=== PATIENT | female | born 1970 | race Caucasian/White ===

== ENCOUNTER 2017-07-29 18:03 | Emergency (ER) | payer BC ==
[~2017-07-29] VITALS: Ht 177.8 cm; Wt 86.3 kg
[~2017-07-29 18:03] MED LIST: APIX5TAB3 PO; ASPI-611 PO; LORA1TAB PO; MINE133E25 RC; SOTA80TA69 PO
[2017-07-29 18:18] VITALS: BP 98/70
== END 2017-07-29 20:04 | disposition left against medical advice (07) ==
LOC: ER 18:03
DX: R07.89 Other chest pain (principal); Z53.21 Procedure and treatment not carried out due to patient leaving prior to being seen by health care provider
CPT/HCPCS: 80053; 93005; 99281

== ENCOUNTER 2018-07-20 08:48 | Emergency (ER) | payer OTHER, BC ==
[~2018-07-20] VITALS: Ht 175.3 cm; Wt 93.2 kg
[~2018-07-20 08:48] MED LIST changes: -SOTA80TA69 PO; +SOTA80TA73 PO
[2018-07-20 08:55] VITALS: BP 104/63
[2018-07-20 09:38] LABS: BASOPHILS % (AUTO) 0.5 % (0-1); EOSINOPHILS # (AUTO) 0.1 X10'3 (0-0.9); EOSINOPHILS % (AUTO) 0.8 % (0-6); HEMATOCRIT 36.6 % (35.0-45.0); LYMPHOCYTES % (AUTO) 45.7 % (21-51); MEAN CORPUSCULAR HEMOGLOBIN 29.3 PG (27.0-31.0); MEAN CORPUSCULAR HGB CONC 32.9 g/dL (33.0-36.5); MEAN PLATELET VOLUME 6.4 FL (7.4-10.4); MONOCYTES # (AUTO) 0.4 X10'3 (0-0.9); MONOCYTES % (AUTO) 6.5 % (2-12); NEUTROPHILS # (AUTO) 3.1 X10'3 (1.8-7.7); NEUTROPHILS % (AUTO) 46.5 % (42-75); PLATELET COUNT 143 X10'3 (140-440); RED BLOOD COUNT 4.11 X10'6 (4.20-5.60); WHITE BLOOD COUNT 6.6 X10'3 (4.5-11.0)
[2018-07-20 09:53] LABS: ALANINE AMINOTRANSFERASE 114 U/L (12-78); ALBUMIN/GLOBULIN RATIO 0.8 (1.1-1.5); ALKALINE PHOSPHATASE 100 IU/L (46-116); ANION GAP 7 (8-16); ASPARTATE AMINO TRANSFERASE 94 U/L (10-37); BILIRUBIN,TOTAL 0.7 MG/DL (0.1-1.0); BLOOD UREA NITROGEN 21 MG/DL (7-18); BUN/CREATININE RATIO 22.1 (6.6-38.0); CALCIUM 8.5 MG/DL (8.5-10.1); CHLORIDE 107 MMOL/L (99-107); CREATININE 0.95 MG/DL (0.40-0.90); GLUCOSE 87 MG/DL (70-104); POTASSIUM 3.9 MMOL/L (3.5-5.1); SODIUM 141 MMOL/L (135-145); TOTAL CARBON DIOXIDE 27.3 MMOL/L (24-32); TOTAL PROTEIN 6.9 G/DL (6.4-8.2); eGFR 63 ML/MIN
[2018-07-20 10:01] LABS: INR 1.1 INR; PROTHROMBIN TIME 10.7 SECONDS (9.0-12.0)
[2018-07-20 11:08] LABS: CLARITY,URINE CLEAR (Clear); COLOR,URINE YELLOW (Yellow); GLUCOSE, URINE NEGATIVE (Neg); KETONES,URINE NEGATIVE (Neg); LEUKOCYTE ESTERASE ,URINE NEGATIVE (Neg); NITRITES, URINE NEGATIVE (Neg); OCCULT BLOOD,URINE TRACE-INTACT (Neg); PROTEIN,URINE NEGATIVE (Neg)
[2018-07-20 11:11] LABS: URINE HCG NEGATIVE (NEG)
[2018-07-20 11:12] LABS: UA COLLECTION TYPE CLN CATCH MIDSTREAM
[2018-07-20 11:18] LABS: SQUAMOUS EPITHELIAL CELL,UR MANY /LPF (FEW)
[2018-07-20 11:19] LABS: WBC,URINE 0-4 /HPF (0-4)
[2018-07-20 11:22] LABS: RBC,URINE 0-2 /HPF (0-2)
[2018-07-20 11:23] LABS: BACTERIA,URINE FEW /HPF (Neg)
[2018-07-20 11:25] LABS: MUCUS STRANDS FEW /LPF (Neg)
[2018-07-20] MEDS ORDERED: PANT-47 PO (13:14)
[2018-07-20] MEDS ORDERED: HYDR-3965 PO (13:14)
== END 2018-07-20 13:31 | disposition home or self-care (01) ==
LOC: ER 08:49
DX: R07.89 Other chest pain (principal); R10.12 Left upper quadrant pain; R10.13 Epigastric pain; R42 Dizziness and giddiness; J02.9 Acute pharyngitis, unspecified; I48.91 Unspecified atrial fibrillation; Z90.710 Acquired absence of both cervix and uterus; Z98.51 Tubal ligation status; Z79.82 Long term (current) use of aspirin; Z79.899 Other long term (current) drug therapy
CPT/HCPCS: 36415; 76775; 80053; 81001; 81025; 85025; 85610; 99284

== ENCOUNTER 2020-11-08 18:53 | Emergency (ER) | payer BC, OTHER ==
[~2020-11-08 18:53] MED LIST changes: +PANT-47 PO
== END 2020-11-08 21:36 | disposition left against medical advice (07) ==
LOC: ER 18:54
DX: Z53.21 Procedure and treatment not carried out due to patient leaving prior to being seen by health care provider (principal)

== ENCOUNTER 2024-06-19 18:47 | Inpatient (IN) | payer OTHER, BC ==
[~2024-06-19] VITALS: Ht 175.3 cm; Wt 102.3 kg
[2024-06-19 19:38] LABS: BASOPHILS # (AUTO) 0.1 X10'3 (0-0.2); BASOPHILS % (AUTO) 0.8 % (0-1); EOSINOPHILS # (AUTO) 0.2 X10'3 (0-0.9); EOSINOPHILS % (AUTO) 2.4 % (0-6); HEMATOCRIT 41.2 % (35.0-45.0); HEMOGLOBIN 13.7 g/dl (12.0-16.0); LYMPHOCYTES % (AUTO) 27.5 % (21-51); MEAN CORPUSCULAR HEMOGLOBIN 30.2 PG (27.0-31.0); MEAN CORPUSCULAR HGB CONC 33.2 g/dL (33.0-36.5); MEAN CORPUSCULAR VOLUME 90.9 FL (78-98); MEAN PLATELET VOLUME 6.9 FL (7.4-10.4); MONOCYTES # (AUTO) 0.4 X10'3 (0-0.9); NEUTROPHILS # (AUTO) 4.6 X10'3 (1.8-7.7); NEUTROPHILS % (AUTO) 63.3 % (42-75); PLATELET COUNT 264 X10'3 (140-440); RED BLOOD COUNT 4.53 X10'6 (4.20-5.60); RED CELL DISTRIBUTION WIDTH 14.6 % (11.5-14.5); WHITE BLOOD COUNT 7.2 X10'3 (4.5-11.0)
[2024-06-19 19:49] LABS: ALANINE AMINOTRANSFERASE 18 U/L (12-78); ALBUMIN 3.6 G/DL (3.4-5.0); ALBUMIN/GLOBULIN RATIO 0.9 (1.1-1.5); ALKALINE PHOSPHATASE 93 IU/L (46-116); ANION GAP 7 (8-16); ASPARTATE AMINO TRANSFERASE 16 U/L (10-37); BILIRUBIN,TOTAL 0.6 MG/DL (0.1-1.0); BLOOD UREA NITROGEN 23 MG/DL (7-18); BUN/CREATININE RATIO 28.8 (10.0-20.0); CALCIUM 9.3 MG/DL (8.5-10.1); CHLORIDE 104 MMOL/L (99-107); GLUCOSE 92 MG/DL (70-104); POTASSIUM 4.3 MMOL/L (3.5-5.1); SODIUM 138 MMOL/L (135-145); TOTAL CARBON DIOXIDE 26.8 MMOL/L (24-32); TOTAL PROTEIN 7.8 G/DL (6.4-8.2); eCRCL 86 ML/MIN; eGFR 75 ML/MIN
[2024-06-19 19:58] LABS: PRO BRAIN NATRIURETIC PEPTIDE 201 PG/ML (0-125)
[2024-06-19] MEDS ORDERED: HEPARIN DRIP-CARDIAC**PHARMACIST-TO-DOSE IV ONE (21:50)
[2024-06-19 22:04] LABS: APTT 28 SECONDS (22-32); PROTHROMBIN TIME 10.4 SECONDS (9.0-12.0)
[2024-06-19] MEDS ORDERED: magnesium hydroxide 30ml (MOM) UD suspension PO PRN (22:40)
[2024-06-19] MEDS ORDERED: mag hydrox/Alum hydrox/simeth 30ml oral suspension PO PRN (22:40)
[2024-06-19] MEDS ORDERED: magnesium Cl slow-release 64mg tablet PO PRN (22:40)
[2024-06-19] MEDS ORDERED: potassium Cl 20 mEq SR tablet PO PRN ×2 (22:40)
[2024-06-19] MEDS ORDERED: magnesium sulf-water 4G/100mL 100 ML IV PRN (22:40)
[2024-06-19] MEDS ORDERED: ondansetron/PF 4mg/2ml inj IV PRN (22:40)
[2024-06-19] MEDS ORDERED: potassium Cl 40MEQ/1/2NS 520ml 520 ML IV PRN (22:40)
[2024-06-19] MEDS ORDERED: magnesium sulf-water 2g/50mL 50 ML IV PRN (22:40)
[2024-06-19] MEDS: heparin 10,000 units/1 ML INJ IV ONE (22:41)
[2024-06-19] MEDS: aspirin 81mg, enteric-coated 1 TAB TABLET.DR PO ONE (22:42)
[2024-06-19] MEDS ORDERED: nitroGLYCERIN 0.4mg SUBLingual tab SL PRN (22:45)
[2024-06-19] MEDS ORDERED: aminophylline 250mg/10ml inj. IV PRN (22:45)
[2024-06-19] MEDS ORDERED: metoprolol tartrate 1mg/ml inj IV PRN (22:45)
[2024-06-19] MEDS: heparin 25,000 UNIT/250ml bag 250 ML IV PRN (22:53)
[2024-06-19 23:08] LABS: HEMOGLOBIN A1C 5.3 % (4.5-6.2)
[2024-06-19] MEDS ORDERED: SERT100T PO (23:30)
[2024-06-20] VITALS (16 sets, daily range): BP systolic 80–120; BP diastolic 48–65; PULSE 76–108; RESP 12–20; TEMP 97–98.1; O2SAT 97–100
[2024-06-20 01:25] LABS: D-DIMER 0.47 MG/L FEU (0-0.50)
[2024-06-20 07:40] LABS: BASOPHILS % (AUTO) 0.7 % (0-1); EOSINOPHILS # (AUTO) 0.2 X10'3 (0-0.9); EOSINOPHILS % (AUTO) 4.1 % (0-6); HEMATOCRIT 36.3 % (35.0-45.0); HEMOGLOBIN 12.1 g/dl (12.0-16.0); LYMPHOCYTES # (AUTO) 1.9 X10'3 (1.1-4.8); MEAN CORPUSCULAR HEMOGLOBIN 30.2 PG (27.0-31.0); MEAN CORPUSCULAR HGB CONC 33.2 g/dL (33.0-36.5); MONOCYTES # (AUTO) 0.4 X10'3 (0-0.9); MONOCYTES % (AUTO) 7.4 % (2-12); NEUTROPHILS # (AUTO) 3.3 X10'3 (1.8-7.7); NEUTROPHILS % (AUTO) 55.8 % (42-75); PLATELET COUNT 218 X10'3 (140-440); RED BLOOD COUNT 3.99 X10'6 (4.20-5.60); RED CELL DISTRIBUTION WIDTH 14.4 % (11.5-14.5); WHITE BLOOD COUNT 5.8 X10'3 (4.5-11.0)
[2024-06-20 07:43] LABS: ALANINE AMINOTRANSFERASE 15 U/L (12-78); ALBUMIN/GLOBULIN RATIO 0.8 (1.1-1.5); ALKALINE PHOSPHATASE 77 IU/L (46-116); ANION GAP 5 (8-16); ASPARTATE AMINO TRANSFERASE 17 U/L (10-37); BILIRUBIN,TOTAL 1.1 MG/DL (0.1-1.0); BLOOD UREA NITROGEN 22 MG/DL (7-18); BUN/CREATININE RATIO 28.6 (10.0-20.0); CALCIUM 8.8 MG/DL (8.5-10.1); CHLORIDE 106 MMOL/L (99-107); CHOL/HDL RATIO 2.1 (0.00-4.99); CHOLESTEROL 178 MG/DL (0-200); CREATININE 0.77 MG/DL (0.40-0.90); GLUCOSE 88 MG/DL (70-104); HDL CHOLESTEROL 84 MG/DL (35-60); LDL CHOLESTEROL 88 MG/DL (50-100); POTASSIUM 4.2 MMOL/L (3.5-5.1); SODIUM 140 MMOL/L (135-145); TOTAL CARBON DIOXIDE 29.4 MMOL/L (24-32); TOTAL PROTEIN 6.6 G/DL (6.4-8.2); TRIGLYCERIDES 29 MG/DL (20-135); eCRCL 89 ML/MIN; eGFR 79 ML/MIN
[2024-06-20] MEDS: K and/or MAG REPLACEMENT MC SCH (08:00)
[2024-06-20] MEDS: docusate sod 100mg capsule PO SCH (08:00)
[2024-06-20] MEDS: MESSAGE TO NURSING IV ONE ×3 (08:15→20:53)
[2024-06-20] MEDS ORDERED: aminophylline 500mg/20ml vial IV PRN (08:36)
[2024-06-20] MEDS: regadenoson 0.4mg/5ml syringe IV PRN (08:39)
[2024-06-20] MEDS ORDERED: MELA10CA2 PO (09:47)
[2024-06-20] MEDS: acetaminophen 325mg tablet PO PRN (10:08)
[2024-06-20] MEDS ORDERED: iohexol 350MG/ML 100ml bottle IV ONE (15:49)
[2024-06-20] MEDS ORDERED: heparin 25,000 UNIT/250ml bag 250 ML IV PRN (20:19)
[2024-06-20] MEDS: heparin 10,000 units/1 ML INJ IV PRN (20:45)
[2024-06-20] MEDS: Melatonin 3mg tablet PO ONE (21:15)
[2024-06-20] MEDS: sertraline 50mg tablet PO ONE (21:17)
[2024-06-20] MEDS: Melatonin 3mg tablet PO SCH (22:56)
[2024-06-21 02:00] VITALS: BP_SYST 86; BP_SYST 90; BP_DIAS 50; BP_DIAS 53; PULSE 75; PULSE 77; RESP 17; RESP 18; TEMP 97.4; O2SAT 97
[2024-06-21 06:00] VITALS: BP 99/59; PULSE 73; RESP 17; TEMP 97.9; O2SAT 97
[2024-06-21 07:17] LABS: BASOPHILS % (AUTO) 0.6 % (0-1); EOSINOPHILS # (AUTO) 0.2 X10'3 (0-0.9); EOSINOPHILS % (AUTO) 4.3 % (0-6); HEMATOCRIT 37.8 % (35.0-45.0); HEMOGLOBIN 12.6 g/dl (12.0-16.0); LYMPHOCYTES # (AUTO) 1.3 X10'3 (1.1-4.8); LYMPHOCYTES % (AUTO) 27.7 % (21-51); MEAN CORPUSCULAR HEMOGLOBIN 30.4 PG (27.0-31.0); MEAN CORPUSCULAR HGB CONC 33.4 g/dL (33.0-36.5); MEAN CORPUSCULAR VOLUME 91.1 FL (78-98); MONOCYTES # (AUTO) 0.4 X10'3 (0-0.9); MONOCYTES % (AUTO) 8.1 % (2-12); NEUTROPHILS # (AUTO) 2.8 X10'3 (1.8-7.7); NEUTROPHILS % (AUTO) 59.3 % (42-75); PLATELET COUNT 215 X10'3 (140-440); RED BLOOD COUNT 4.15 X10'6 (4.20-5.60); RED CELL DISTRIBUTION WIDTH 14.2 % (11.5-14.5); WHITE BLOOD COUNT 4.7 X10'3 (4.5-11.0)
[2024-06-21 07:27] LABS: ALANINE AMINOTRANSFERASE 14 U/L (12-78); ALBUMIN 3.1 G/DL (3.4-5.0); ALBUMIN/GLOBULIN RATIO 0.8 (1.1-1.5); ALKALINE PHOSPHATASE 80 IU/L (46-116); ANION GAP 5 (8-16); ASPARTATE AMINO TRANSFERASE 16 U/L (10-37); BLOOD UREA NITROGEN 19 MG/DL (7-18); BUN/CREATININE RATIO 22.9 (10.0-20.0); CALCIUM 9.1 MG/DL (8.5-10.1); CHLORIDE 106 MMOL/L (99-107); CREATININE 0.83 MG/DL (0.40-0.90); GLUCOSE 87 MG/DL (70-104); MAGNESIUM 2.1 MG/DL (1.5-2.4); POTASSIUM 4.1 MMOL/L (3.5-5.1); SODIUM 139 MMOL/L (135-145); TOTAL CARBON DIOXIDE 27.6 MMOL/L (24-32); TOTAL PROTEIN 6.9 G/DL (6.4-8.2); eCRCL 83 ML/MIN; eGFR 72 ML/MIN
[2024-06-21 08:00] VITALS: RESP 17; O2SAT 98
[2024-06-21] MEDS: sertraline 50mg tablet PO SCH (08:00)
[2024-06-21] MEDS: apixaban 5mg tablet PO SCH (08:04)
[2024-06-21 10:34] VITALS: BP 105/76; PULSE 96; RESP 17; TEMP 97.6; O2SAT 92
== END 2024-06-21 10:48 | disposition home or self-care (01) | DRG 313 ==
LOC: ER 18:48 → ED HOLD 22:45 → PCU 3S 23:56
PROVIDERS: ADMIT Surgery Surgical Critical Care; ATTEND Family Medicine
PROC: 4A02XM4 Measurement of Cardiac Total Activity, External Approach (ICD-10-PCS; principal; 2024-06-20)
PROC: 3E033HZ Introduction of Radioactive Substance into Peripheral Vein, Percutaneous Approach (ICD-10-PCS; 2024-06-20)
PROC: B32T1ZZ Computerized Tomography (CT Scan) of Left Pulmonary Artery using Low Osmolar Contrast (ICD-10-PCS; 2024-06-20)
PROC: B3201ZZ Computerized Tomography (CT Scan) of Thoracic Aorta using Low Osmolar Contrast (ICD-10-PCS; 2024-06-20)
PROC: B32S1ZZ Computerized Tomography (CT Scan) of Right Pulmonary Artery using Low Osmolar Contrast (ICD-10-PCS; 2024-06-20)
DX: R07.89 Other chest pain (principal); I48.19 Other persistent atrial fibrillation; R91.1 Solitary pulmonary nodule; F32.A Depression, unspecified; J43.9 Emphysema, unspecified; Z79.01 Long term (current) use of anticoagulants; Z90.710 Acquired absence of both cervix and uterus
CPT/HCPCS: 36415; 71045; 71275; 78452; 80053; 80061; 83036; 83735; 83880; 84443; 84484; 85025; 85379; 85610; 85730; 87081; 93005; 93017; 93306; 99291; A9500; G0378; J1644; J2785; Q9967